=== PATIENT | female | born 1935 | race Caucasian/White ===

== ENCOUNTER 2017-09-01 10:09 | Day surgery (SDC) | payer MEDICARE ==
[~2017-09-01 10:09] MED LIST: Buffered Lidocaine 0.9% SYRIN* 5 ML/SYR SYRINGE INTRADERM ONE
[2017-09-01] MEDS ORDERED: Clindamycin 900 MG IVPREMIX(* 900 MG/50 ML SDV IV ONE (10:30)
[2017-09-01] MEDS ORDERED: BSS OPTH.SOL* BTL ONE (11:13)
[2017-09-01] MEDS ORDERED: Mineral Oil Sterile, TOPICAL* 25 ML BTL ONE (11:13)
[2017-09-01] MEDS ORDERED: Bupivacaine 0.25% SDV* 30 ML ONE (11:13)
[2017-09-01] MEDS ORDERED: Lidocain 1% EPI 1:100,000 * 30 ML MDV ONE (11:14)
[2017-09-01] MEDS ORDERED: Methylene Blue 0.5 %* 50 MG/10 ML AMP IV ONE (11:14)
[2017-09-01] MEDS ORDERED: fentaNYL* 50 MCG/ML 2 ML VIAL (100 MCG VIAL) ONE (12:13)
[2017-09-01] MEDS ORDERED: Midazolam* 1 MG/ML 2 ML VIAL (2 MG) ONE (12:13)
[2017-09-01] MEDS ORDERED: Propofol* 10 MG/ML 20 ML BTL IV PUSH ONE (12:22)
[2017-09-01] MEDS ORDERED: Bacitracin OINTMENT* 0.5% 0.5 oz TUBE ONE (12:29)
[2017-09-01 13:39] VITALS: BP 115/55
== END 2017-09-01 14:13 | disposition home or self-care (01) ==
LOC: OREAST 10:09
PROVIDERS: ATTEND Plastic Surgery
DX: C44.311 Basal cell carcinoma of skin of nose (principal); I25.10 Atherosclerotic heart disease of native coronary artery without angina pectoris; I11.0 Hypertensive heart disease with heart failure; I50.9 Heart failure, unspecified; I44.0 Atrioventricular block, first degree; Z87.891 Personal history of nicotine dependence; Z79.01 Long term (current) use of anticoagulants; I48.91 Unspecified atrial fibrillation; I08.1 Rheumatic disorders of both mitral and tricuspid valves; Z85.828 Personal history of other malignant neoplasm of skin; R42 Dizziness and giddiness
CPT/HCPCS: A9270-GY; J2250; J2704; J3010